=== PATIENT | female | born 1995 | race Caucasian/White ===

== ENCOUNTER 2016-12-23 21:51 | Emergency (ER) | payer OTHER ==
[~2016-12-23] VITALS: Ht 160 cm; Wt 72.6 kg
[2016-12-23 22:00] VITALS: BP 118/76
--- NOTE | 2016-12-23 23:08 | NUR ---
TECH OWEN AT BEDSIDE FOR EYE IRRIGATION.
== END 2016-12-23 23:39 | disposition home or self-care (01) ==
LOC: ER 21:55
DX: T16.2XXA Foreign body in left ear, initial encounter (principal); Z88.1 Allergy status to other antibiotic agents; Z88.8 Allergy status to other drugs, medicaments and biological substances
CPT/HCPCS: 69200; 99284; A4606; Z7610